=== PATIENT | male | born 1960 | race Caucasian/White ===

== ENCOUNTER 2017-01-06 08:52 | Day surgery (SDC) | payer OTHER ==
[2017-01-03 11:15] VITALS: BMI 23.7
[~2017-01-06 08:52] MED LIST: LACTATED RINGERS 1,000 ML IV SCH
[2017-01-06] MEDS ORDERED: LIDOCAINE 1% 20 ML VIAL (10MG/ML) FOR IV START INTRADERMA ONE (09:28)
[2017-01-06 09:29] VITALS: RESP 18; TEMP 97.2
[2017-01-06] MEDS ORDERED: MIDAZOLAM 2 MG/2 ML VIAL ONE (09:40)
[2017-01-06] MEDS ORDERED: PROPOFOL 10 MG/ML 20 ML VIAL IV ONE (09:40)
[2017-01-06] MEDS ORDERED: LIDOCAINE 1% INJ 10MG/ML (20 ML MDV) ONE (09:40)
[2017-01-06 09:43] LABS: Glucose,Whole Blood 98 mg/dL (75-99)
--- NOTE | 2017-01-06 10:28 | P.PCN ---
Date of Procedure: 01/06/17 Procedure(s) Performed: Procedure: 1. Esophagogastroduodenoscopy and biopsy. 2. Colonoscopy and biopsy. Preoperative diagnosis: Abdominal pain and change in bowel habits. Postoperative diagnosis: 1. Sliding hiatal hernia with no obvious esophagitis or complicated reflux disease. 2. Mild gastritis and duodenitis. 3. Normal colon and terminal ileum. 4. Biopsies obtained from the duodenum, antrum, esophagus, terminal ileum and right colon. Preparation: HalfLytely prep. Sedation: Was provided by anesthesia. Brief clinical history: The patient is a 56-year-old male who I have evaluated in the office last month regarding alternating bowel habits and left-sided abdominal pain as well as chronic reflux symptoms. The patient has been on omeprazole daily since 2014 with indigestion symptoms if he misses even one dose. Reported episodes of diarrhea and has been having abdominal pain and atypical chest pains since August 2016. The patient had no prior EGD or colonoscopy. Procedure: With the patient on his left lateral decubitus position and after informed consent and adequate sedation, I passed the Olympus-GIF 160 video upper endoscope through the cricopharyngeus down the esophagus. GE junction was around 40 cm from the incisors and there was a 2 cm sliding hiatal hernia. The esophagus did not show any obvious erosions, ulcers, strictures or Napoles' s esophagus. The endoscope was then passed into the stomach which was insufflated with air and inspected in detail including the retroflex view in the cardia. There was mottling and erythema in the antrum but no ulcers or erosions. Pyloric channel did not show any ulcers. Duodenal bulb post bulbar area and descending duodenum showed mottling, erythema and friability but no erosions, ulcers or bleeding. I obtained multiple biopsies from the duodenum, antrum and esophagus then the endoscope was withdrawn. And I then proceeded with the colonoscopy. Perianal area did not show any fissures or fistulas. There were no masses felt on digital rectal examination. The Olympus CFQ 160L video colonoscope was then inserted in the rectum in the usual fashion and advanced to the cecum. I intubated the ileocecal valve and examined the terminal ileum. Terminal ileum and colon appeared healthy with no edema, erythema, friability, ulceration, exudation or spontaneous bleeding. No polyps or tumors were seen or any obvious diverticular disease. I obtained biopsies from the terminal ileum and right colon. Low-grade internal hemorrhoids were noted upon withdrawing the endoscope but there was no evidence of bleeding. The patient tolerated the procedure well. Plan: The patient was reassured. Discussed dietary measures and local care for hemorrhoids. Will await biopsy results and make further plans based on his course and biopsy results. Will keep you updated on his progress. As for his screening for neoplasia, I am recommending repeat exam in 10 years.
[2017-01-06] MEDS: MEPERIDINE 50 MG/ML SYRINGE IVP STA ×2 (10:43→11:06)
[2017-01-06] MEDS ORDERED: MEPERIDINE 50 MG/ML SYRINGE IVP ONE (10:43)
[2017-01-06] MEDS ORDERED: IV FLUID CONTINUATION 1,000 ML IV ONE (10:45)
[2017-01-06 11:11] VITALS: PULSE 68
[2017-01-06 12:32] VITALS: BP 113/65
== END 2017-01-06 13:20 | disposition home or self-care (01) ==
LOC: ORWHC2ENDO 08:52
DX: K29.50 Unspecified chronic gastritis without bleeding (principal); K44.9 Diaphragmatic hernia without obstruction or gangrene; K29.80 Duodenitis without bleeding; K21.9 Gastro-esophageal reflux disease without esophagitis; K64.8 Other hemorrhoids; R19.4 Change in bowel habit; J44.9 Chronic obstructive pulmonary disease, unspecified; J45.909 Unspecified asthma, uncomplicated; Z87.891 Personal history of nicotine dependence; Z79.899 Other long term (current) drug therapy; Z88.0 Allergy status to penicillin
CPT/HCPCS: 88305; 88342; 45380; 43239; J2250; J2175; J2001; J2704

== ENCOUNTER → 2019-04-18 | Outpatient (CLI) | payer OTHER ==
--- NOTE | 2019-04-25 11:24 | P.ARTDOP ---
Arterial Doppler LOWER EXTREMITY ARTERIAL DOPPLER: DATE OF SERVICE: 04/18/2019 Reason for study: Bilateral leg pain. Doppler waveforms: Multiphasic bilaterally throughout. Pulse volume recording: []. Pressure gradients: None. Ankle-brachial indices: Greater than 1 bilaterally. Toe pressures: [] on the right, [] on the left Impression: Normal study.
== END | disposition home or self-care (01) ==
LOC: RADUSWWP 09:37
PROVIDERS: ATTEND Family Medicine
DX: M79.604 Pain in right leg (principal); M79.605 Pain in left leg; R68.89 Other general symptoms and signs; I73.9 Peripheral vascular disease, unspecified
CPT/HCPCS: 93922; 93923